=== PATIENT | male | born 1970 | race Caucasian/White ===

== ENCOUNTER 2017-03-25 21:36 | Emergency (ER) | payer SELFPAY ==
[2017-03-25 21:53] LABS: POC GLUCOSE 499 mg/dL (70-99)
[2017-03-25] MEDS: IV NORMAL SALINE 1000ML BAG 1,000 ML IV ×4 (22:12→22:15)
[2017-03-25 22:20] LABS: ADD MAN DIFF? NO
[2017-03-25 22:23] LABS: BASO # 0.1 x10^3/uL (0.0-0.2); BASO % 1 % (0-3); EOS # 0.1 x10^3/uL (0.0-0.7); EOS % 1 % (0-3); HEMOGLOBIN 13.4 g/dL (13.0-17.5); LYMPH # 3.6 x10^3/uL (1.0-4.8); LYMPH % 35 % (24-48); MEAN CORPUSCULAR HEMOGLOBIN 30 pg (25-35); MEAN CORPUSCULAR HGB CONC 35 g/dL (31-37); MEAN CORPUSCULAR VOLUME 84 fL (79-100); MONO # 0.5 x10^3/uL (0.0-1.1); MONO % 5 % (0-9); NEUT # 5.8 x10^3uL (1.8-7.7); NEUT % 58 % (31-73); PLATELET COUNT 339 x10^3/uL (140-400); RED BLOOD COUNT 4.54 x10^6/uL (4.30-5.70); WHITE BLOOD COUNT 10.1 x10^3/uL (4.0-11.0)
[2017-03-25] MEDS: FAMOTIDINE 20 MG/2 ML VIAL IVP ×2 (22:28)
[2017-03-25 22:37] LABS: ALBUMIN 3.3 g/dL (3.4-5.0); ALK PHOS 141 U/L (46-116); ALT (SGPT) 22 U/L (16-63); ANION GAP 9 (6-14); AST (SGOT) 24 U/L (15-37); BLOOD UREA NITROGEN 12 mg/dL (8-26); BUN/CREATININE RATIO 17 (6-20); CALCIUM 8.6 mg/dL (8.5-10.1); CARBON DIOXIDE 30 mmol/L (21-32); CHLORIDE 94 mmol/L (98-107); CREATININE 0.7 mg/dL (0.7-1.3); GFR 122.5; POTASSIUM 3.6 mmol/L (3.5-5.1); SODIUM 133 mmol/L (136-145); TOTAL PROTEIN 6.6 g/dL (6.4-8.2)
[2017-03-25 22:51] LABS: GLUCOSE 517 mg/dL (70-99)
[2017-03-25] MEDS: hydrOXYzine IM 50 MG/ML VIAL IM ×2 (23:56)
[2017-03-26] MEDS: INSULIN REGULAR 100 UNIT/ML 10ML VIAL. IV ×2 (00:02)
[2017-03-26 00:05] LABS: BILIRUBIN,URINE NEGATIVE (NEG); CLARITY,URINE CLOUDY; COLOR,URINE YELLOW; GLUCOSE,URINE >=1000 mg/dL (NEG); NITRITE,URINE NEGATIVE (NEG); PH,URINE 5.5; PROTEIN,URINE NEGATIVE (NEG-TRACE); UROBILINOGEN,URINE 0.2 mg/dL (0.2 mg/dL)
[2017-03-26 00:14] LABS: BACTERIA,URINE 0 /HPF (0-FEW); RBC,URINE 0 /HPF (0-2); WBC,URINE 0 /HPF (0-4)
[2017-03-26 00:15] LABS: SQUAMOUS EPITHELIAL CELL,UR OCC /LPF
[2017-03-26 00:33] LABS: POC GLUCOSE 298 mg/dL (70-99)
== END 2017-03-26 01:41 | disposition home or self-care (01) ==
LOC: ER 03-26 01:41
DX: T78.1XXA Other adverse food reactions, not elsewhere classified, initial encounter (principal); L50.0 Allergic urticaria; E11.65 Type 2 diabetes mellitus with hyperglycemia; Z91.013 Allergy to seafood; Z87.442 Personal history of urinary calculi; X58.XXXA Exposure to other specified factors, initial encounter
CPT/HCPCS: 36415; 80053; 81001; 82962; 85025; 96361; 96372; 96374; 96375; 99285-25; J1815; J3410; J7030; S0028